=== PATIENT | male | born 1970 | race Caucasian/White ===

== ENCOUNTER 2022-07-05 14:05 | Emergency (ER) | payer MEDICAID ==
[~2022-07-05] VITALS: Ht 175.3 cm; Wt 70.5 kg
[2022-07-05 14:20] VITALS: BP 106/77
== END 2022-07-05 14:10 | disposition home or self-care (01) ==
LOC: ER 14:05
DX: M25.532 Pain in left wrist (principal)
CPT/HCPCS: 73110; 99283